=== PATIENT | female | born 1965 | race Two or more races ===

== ENCOUNTER 2024-08-26 15:33 | Emergency (ER) | payer OTHER, BC ==
[~2024-08-26] VITALS: Ht 165.1 cm; Wt 68.0 kg
[2024-08-26] MEDS ORDERED: IBUP-1490 PO (16:26)
[2024-08-26] MEDS ORDERED: LIDO30AD10 TP (16:26)
[2024-08-26] MEDS ORDERED: CYCL5TAB PO (16:26)
[2024-08-26 17:27] VITALS: BP 129/72; TEMP 98.8; O2SAT 98
== END 2024-08-26 17:20 | disposition home or self-care (01) ==
LOC: ER 15:44
DX: S16.1XXA Strain of muscle, fascia and tendon at neck level, initial encounter (principal); S39.012A Strain of muscle, fascia and tendon of lower back, initial encounter; R51.9 Headache, unspecified; Z90.12 Acquired absence of left breast and nipple; V49.9XXA Car occupant (driver) (passenger) injured in unspecified traffic accident, initial encounter; Y93.89 Activity, other specified; Y92.415 Exit ramp or entrance ramp of street or highway as the place of occurrence of the external cause; Y99.8 Other external cause status
CPT/HCPCS: 72040-TC